=== PATIENT | female | born 1995 | race Caucasian/White ===

== ENCOUNTER 2017-03-06 17:18 | Inpatient (IN) | payer BC, OTHER ==
[~2017-03-06] VITALS: Ht 154.9 cm; Wt 59.0 kg
[~2017-03-06 17:18] MED LIST: Z.0.NO CURRENT MEDS
[2017-03-06 18:11] LABS: AUTOMATED NEUTROPHIL # 5.8 TH/MM3 (1.8-7.7); BASOPHIL % 0.4 % (0.0-2.0); EOSINOPHIL # 0.1 TH/MM3 (0-0.4); EOSINOPHIL % 0.7 % (0.0-4.0); HEMATOCRIT 35.1 % (35.0-46.0); HEMO FLAGS DIFF FINAL; LYMPH % 29.5 % (9.0-44.0); LYMPHOCYTE # 2.8 TH/MM3 (1.0-4.8); MEAN CELL VOLUME 89.5 FL (80.0-100.0); MEAN CORPUSCULAR HEMOGLOBIN 31.5 PG (27.0-34.0); MEAN CORPUSCULAR HGB CONC 35.2 % (32.0-36.0); MONO % 7.8 % (0.0-8.0); NEUT % 61.6 % (16.0-70.0); PLATELET COUNT 178 TH/MM3 (150-450); RED BLOOD COUNT 3.92 MIL/MM3 (4.00-5.30); RED CELL DISTRIBUTION WIDTH 13.9 % (11.6-17.2); WHITE BLOOD COUNT 9.4 TH/MM3 (4.0-11.0)
[2017-03-06] MEDS ORDERED: CITRIC ACID-SODIUM CITRATE LIQ 30 ML UDC PO SCH (18:15)
[2017-03-06] MEDS ORDERED: NS 1000 ML IV PRN (18:15)
[2017-03-06] MEDS ORDERED: LIDOCAINE HCL 1% 50 ML VIAL INFIL PRN (18:15)
[2017-03-06] MEDS ORDERED: NS 500 ML BOLUS IV PRN (18:15)
[2017-03-06] MEDS ORDERED: MINERAL OIL 10 ML VIAL TOPICAL PRN (18:15)
[2017-03-06] MEDS ORDERED: OXYTOCIN 30 UNITS 500ML PREMIX IV ONE (18:15)
[2017-03-06] MEDS ORDERED: LACTATED RINGER'S 1000 ML BOLUS IV PRN (18:15)
[2017-03-06] MEDS ORDERED: LIDOCAINE HCL 1% 50 ML VIAL I-DERMAL PRN (18:15)
[2017-03-06] MEDS ORDERED: ONDANSETRON HCL 4 MG/2 ML VIAL IV PUSH PRN (18:15)
[2017-03-06] MEDS ORDERED: NS 1000 ML OTHER PRN (18:15)
[2017-03-06] MEDS ORDERED: DINOPROSTONE 10 MG INSERT-LEAVE FOR 12 HOURS VAGINAL ONE (18:15)
[2017-03-06 18:21] LABS: BLOOD, URINE NEG (NEG); GLUCOSE,URINE NEG (NEG); KETONE, URINE NEG (NEG); NITRITE,URINE NEG (NEG); PH, URINE 6.5 (5.0-8.5); URINE COLOR YELLOW (YELLW/STRAW)
[2017-03-06 18:34] LABS: BACTERIA, URINE RARE /hpf; COMMENT (UR) CULT NOT INDICATED; CULTURE IF INDICATED CULT NOT INDICATED; RBC, URINE 0-3 /hpf (0-3); SQUAMOUS EPITHELIAL CELL URINE 0-5 /hpf (0-5); WBC, URINE 0-2 /hpf (0-5)
[2017-03-06] MEDS: LACTATED RINGER'S 1000 ML IV SCH (18:34)
[2017-03-06 18:35] LABS: MUCUS URINE MOD /lpf (OCC)
[2017-03-06 18:43] VITALS: RESP 18
[2017-03-06 18:44] VITALS: BP 110/71; PULSE 88
[2017-03-06 19:52] VITALS: BP 115/76; PULSE 104
[2017-03-06 20:00] VITALS: RESP 16; TEMP 98.1
[2017-03-07] VITALS (16 sets, daily range): BP systolic 95–123; BP diastolic 51–82; PULSE 18–97; RESP 16–18; TEMP 98.2–98.5
[2017-03-07] MEDS: LACTATED RINGER'S 1000 ML IV SCH ×3 (02:15→23:00)
[2017-03-07] MEDS ORDERED: OXYTOCIN 30 UNITS/NS 500ML PREMIX IV SCH (07:00)
[2017-03-07] MEDS ORDERED: DINOPROSTONE 10 MG INSERT - REMOVE AT 0600 VAGINAL ONE ×2 (17:00→19:30)
[2017-03-07] MEDS ORDERED: ZOLPIDEM TARTRATE 10 MG TAB PO PRN (23:00)
[2017-03-08] VITALS (38 sets, daily range): BP systolic 95–151; BP diastolic 52–101; PULSE 79–160; RESP 16–22; TEMP 98.2–100.9; O2SAT 97–100
[2017-03-08] MEDS ORDERED: PREN29TA PO (07:25)
--- NOTE | 2017-03-08 09:06 | MB ---
cc: BORIS OSORIO DATE: 03/08/2017 PROGRESS NOTE SUBJECTIVE The patient had a subjectively quiet night and rested well. OBJECTIVE The heart rate tracing is normal. The cervix is now 2, 70, vertex, 0, intact. ASSESSMENT AND PLAN We discussed the various options of either proceeding with induction through [facility] and Pitocin or whether the patient would prefer to go home and come back at a later time for induction or with onset of spontaneous labor. After weighing all the options the patient elected to proceed with induction, active management, membranes were ruptured. Should she have failure to progress or distress she understands the need for delivery. MD CLEMENTE Leiva/SALLIE /8:59 AM /9:03 AM
[2017-03-08] MEDS ORDERED: ePHEDrine/NS 25 MG/5 ML SYR ONE (11:27)
[2017-03-08] MEDS ORDERED: fentaNYL 2MCG-BUPIV 0.125% INJ 100 ML ONE (11:27)
[2017-03-08] MEDS ORDERED: LACTATED RINGER'S 1000 ML INJ 1,000 ML IV SCH (13:04)
[2017-03-08] MEDS ORDERED: DO NOT ADMINISTER ANTICOAGULANTS PRN (14:15)
[2017-03-08] MEDS ORDERED: NO SYSTEM NARCOTICS PRN (14:15)
[2017-03-08] MEDS ORDERED: ePHEDrine/NS 25 MG/5 ML SYR IV PUSH PRN (14:15)
[2017-03-08] MEDS ORDERED: fentaNYL 2MCG-BUPIV 0.125% 100 ML EPIDURAL SCH (14:15)
[2017-03-08] MEDS ORDERED: TERBUTALINE INJ 1 MG/ML AMP ONE (17:24)
[2017-03-08] MEDS ORDERED: LACTATED RINGER'S 1000 ML INJ 1,000 ML IV ONE (17:47)
[2017-03-08] MEDS ORDERED: LIDOCAINE 2%/EPINEPHrine PF 1:200,000 20ML SDV ONE (17:50)
[2017-03-08] MEDS ORDERED: SODIUM BICARBONATE 8.4% INJ 50 ML ONE (17:52)
[2017-03-08] MEDS ORDERED: ceFAZolin INJ 1,000 MG VIAL ONE (17:59)
[2017-03-08] MEDS ORDERED: SODIUM CHLORIDE 0.9% FLUSH 5 ML FLUSH IV PRN (18:00)
[2017-03-08] MEDS ORDERED: SIMETHICONE 80 MG CHEWABLE TAB PO PRN (18:00)
[2017-03-08] MEDS ORDERED: ONDANSETRON HCL 4 MG/2 ML VIAL IVP PRN (18:00)
[2017-03-08] MEDS ORDERED: MEASLES, MUMPS, RUBELLA VACCINE 0.5 ML VIAL SQ ONE (18:00)
[2017-03-08] MEDS ORDERED: KETOROLAC TROMETHAMINE 30 MG/ML (IVP) VIAL IV PUSH PRN (18:00)
[2017-03-08] MEDS ORDERED: OXYTOCIN 30 UNITS-500ML PREMIX 500 ML IV ONE (18:00)
[2017-03-08] MEDS ORDERED: ZOLPIDEM TARTRATE 5 MG TAB PO PRN (18:00)
[2017-03-08] MEDS ORDERED: KETOROLAC TROMETHAMINE 60 MG/2 ML (IM) VIAL IM PRN (18:00)
[2017-03-08] MEDS ORDERED: OXYTOCIN 30 UNITS-500ML PREMIX 500 ML IV PRN (18:15)
[2017-03-08 18:42] LABS: BLOOD GAS O2 HGB SATURATION 66 % (90-100); CORD BLOOD GAS HCO3 21 mmol/L (21-29); CORD BLOOD GAS PCO2 37 mmHG (34-78); CORD BLOOD GAS PH 7.38 (7.14-7.42); CORD BLOOD GAS PO2 29 mmHG (3.0-40.0)
[2017-03-08 18:43] LABS: DRAW SITE CORD BLOOD; STAT NO
[2017-03-08] MEDS ORDERED: ceFAZolin 2 GM PREMIX 50 ML IV SCH (19:00)
[2017-03-08] MEDS ORDERED: CITRIC ACID-SODIUM CITRATE LIQ 30 ML UDC PO SCH (19:30)
[2017-03-08] MEDS ORDERED: OXYTOCIN 30 UNITS-500ML PREMIX 500 ML ONE (20:06)
[2017-03-08] MEDS ORDERED: SODIUM CHLORIDE 0.9% FLUSH 5 ML FLUSH IV SCH (21:00)
[2017-03-08] MEDS ORDERED: diphenhydrAMINE HCL 25 MG CAP PO PRN (22:00)
[2017-03-09] VITALS: BP 122/79; PULSE 85; RESP 18; TEMP 98.1
[2017-03-09] MEDS: ACETAMINOPHEN 1000 MG/100 ML VIAL IV SCH ×2 (02:03→10:22)
[2017-03-09 04:00] VITALS: BP 100/64; PULSE 96; RESP 18; TEMP 98.3
[2017-03-09 06:05] LABS: AUTOMATED NEUTROPHIL # 10.5 TH/MM3 (1.8-7.7); BASOPHIL % 0.1 % (0.0-2.0); HEMATOCRIT 29.1 % (35.0-46.0); HEMO FLAGS DIFF FINAL; LYMPH % 10.9 % (9.0-44.0); LYMPHOCYTE # 1.4 TH/MM3 (1.0-4.8); MEAN CORPUSCULAR HEMOGLOBIN 30.3 PG (27.0-34.0); MEAN CORPUSCULAR HGB CONC 33.7 % (32.0-36.0); MONO % 6.5 % (0.0-8.0); NEUT % 82.5 % (16.0-70.0); PLATELET COUNT 140 TH/MM3 (150-450); RED BLOOD COUNT 3.23 MIL/MM3 (4.00-5.30); WHITE BLOOD COUNT 12.7 TH/MM3 (4.0-11.0)
[2017-03-09 06:25] LABS: BICARBONATE 25.2 MEQ/L (21.0-32.0); POTASSIUM 3.7 MEQ/L (3.5-5.1)
[2017-03-09 08:00] VITALS: BP 97/62; PULSE 92; RESP 16; TEMP 98.2; O2SAT 98
--- NOTE | 2017-03-09 08:22 | MP ---
cc: DEVONBORIS DATE OF SURGERY: 03/08/2017 PREOPERATIVE DIAGNOSIS 1. Term . 2. bradycardia, non-reassuring heart rate tracing. 3. Failure to progress. POSTOPERATIVE DIAGNOSIS 1. Term . 2. bradycardia, non-reassuring heart rate tracing. 3. Failure to progress. 4. Delivered, occiput posterior and tight nuchal cord. ANESTHESIA Epidural. SURGEON Boris Lozano MD RESTAURANT MANAGER Sh[place]ana. ESTIMATED BLOOD LOSS 600 cc. FLUIDS 1.2 liters crystalloid. OBJECTIVE FINDINGS Following the induction of adequate epidural anesthesia the patient was prepped and draped supine on the operating table in the left lateral tilt position, usual sterile fashion, with the bladder being drained via Olvera catheterization. The abdomen was opened through a Pfannenstiel incision using a knife to cut down from the skin to the fascia. The fascia was opened transversely and stripped from the muscles. The rectus muscle was split in the midline and the peritoneum opened sharply without incident. The bladder flap was taken down sharply, retracted with a Argelia blade. The lower uterine segment was incised transversely with a knife and extended with blunt section. The uterus was ruptured of clear fluid. The baby was in the ROP position, slowly rotated and delivered with low pressure boiler operator guidance and fundal pressure. The mouth was suctioned. A tight nuchal cord was reduced. The cord was clamped and cut and the baby passed to the awaiting team, a viable female, Apgars 8 and 9, weight 6 pounds 4 ounces. Cord blood was collected for typing and ABG. The placenta was manually removed. The uterine cavity was wiped clean with laps. The uterus was exteriorized and closed with running suture, first with a running locking stitch of 0 Vicryl, second with a running imbricating stitch of 0 Vicryl. Posterior inspection was normal. The uterus was placed in the peritoneal cavity. Irrigation was performed. No bleeding was evident. The bladder flap was closed with a running stitch of 3-0 Vicryl. All laps and retractors were removed. Counts were correct. The anterior peritoneum was closed with a running stitch of 2-0 Vicryl, the fascia with a running locking stitch of 0 Vicryl corner to midline and tied, subcu with 3-0 Vicryl and skin with running subcuticular 3-0 Monocryl. Dermabond was applied. All counts were correct. The patient was awake and taken to the recovery room in good condition. MD CLEMENTE Leiva/SALLIE /6:56 PM /8:08 AM
[2017-03-09] MEDS: LACTATED RINGER'S 1000 ML IV SCH ×2 (08:25→14:20)
[2017-03-09] MEDS: LACTATED RINGER'S 1000 ML INJ 1,000 ML IV SCH ×2 (08:30→14:20)
--- NOTE | 2017-03-09 08:40 | MH ---
cc: BORIS OSORIO MD DATE OF ADMISSION: 03/06/2017 ADMITTING DIAGNOSIS: Term . HISTORY OF PRESENT ILLNESS The patient is a 21-year-old single white female para 0 with an EDC of 03/06/2017 by dates ultrasound. Her preop course has been benign. PAST MEDICAL HISTORY/PREVIOUS SURGERIES: Tonsillectomy and adenoidectomy age [age]. MEDICATIONS Vitamins. ALLERGIES NONE. TRANSFUSIONS None. SOCIAL HISTORY She is single Artist and student. SOCIAL HISTORY: Alcohol, tobacco and drugs are none. PHYSICAL EXAMINATION: IN GENERAL: This is a well-nourished, well developed white female, vital signs stable. HEAD, EYES, EARS, NOSE, AND THROAT: Exam is normal. CHEST: Chest is clear. HEART: Regular rate. BREASTS: Symmetrical. ABDOMEN: The abdomen is benign. . EFW of 3000 grams. Cervix is closed the soft vertex presentation. PERTINENT POSITIVES: She has history of genital HSV. Valtrex prophylaxis since 02/06/2017 with the negative cultures. She had a positive Chlamydia on 02/12/2017 after treatment x2. Her last gen probe for Chlamydia and gonorrhea was negative on 02/26/1970. PLAN She is now admitted for induction of labor should she have failure to progress or distress with her labor. She is aware the need section. In the office the risks, benefits and complications were explained and accepted. MD CLEMENTE Leiva/ /11:32 AM /8:41 AM
[2017-03-09] MEDS: IBUPROFEN 600 MG TAB PO PRN ×2 (10:22→17:33)
[2017-03-09 12:00] VITALS: BP 108/66; PULSE 111; RESP 16; TEMP 98.4; O2SAT 98
[2017-03-09 20:15] VITALS: BP 101/64; PULSE 98; RESP 18; TEMP 98.1
[2017-03-09] MEDS: oxyCODONE/ACETAMINOPHEN 5 MG/325 MG TAB PO PRN (20:23)
[2017-03-09] MEDS: DOCUSATE SODIUM 50 MG/SENNA 8.6 MG TAB PO PRN (20:23)
[2017-03-10] MEDS: IBUPROFEN 600 MG TAB PO PRN ×4 (01:49→23:52)
[2017-03-10] MEDS: oxyCODONE/ACETAMINOPHEN 5 MG/325 MG TAB PO PRN ×7 (01:49→23:51)
[2017-03-10] MEDS: LACTATED RINGER'S 1000 ML IV SCH ×2 (02:15→10:15)
[2017-03-10] MEDS: LACTATED RINGER'S 1000 ML INJ 1,000 ML IV SCH ×3 (02:57→17:01)
[2017-03-10 03:26] VITALS: BP 91/55; PULSE 76; RESP 18; TEMP 97.9
[2017-03-10 08:00] VITALS: BP 106/68; PULSE 83; RESP 16; TEMP 98.2; O2SAT 98
[2017-03-10] MEDS ORDERED: DIPHTH/TETANUS/ACEL PERTUSSIS (BOOSTER) 0.5 ML VIAL/PFS IM ONE (09:00)
[2017-03-10] MEDS: DOCUSATE SODIUM 50 MG/SENNA 8.6 MG TAB PO PRN (12:16)
[2017-03-10] MEDS ORDERED: OXYC1TAB63 PO (13:24)
[2017-03-10] MEDS ORDERED: IBUP-232 PO (13:24)
--- NOTE | 2017-03-10 13:25 | HHI.DCPOC ---
Discharge Care Plan Your Health Problems Are: delivery Report Symptoms to Your Doctor -Temperature above 100.5 degrees -Redness, of incision or excessive or foul smelling drainage -Unusual pain or calf pain -Increased vaginal bleeding -Painful or difficulty urinating -Feelings of extreme sadness or anxiety after 2 weeks Goals to Promote Your Health * To prevent worsening of your condition and complications * To maintain your health at the optimal level Directions to Meet Your Goals Take your medications as prescribed Follow your dietary instruction Follow activity as directed Ensure plenty of rest for recovery Drink fluids for hydration Keep your appointments as scheduled Take your immunizations and boosters as scheduled If your symptoms worsen call your PCP, if no PCP go to Urgent Care Center or Emergency Room Smoking is Dangerous to Your Health. Avoid second hand smoke Call the 24-hour crisis hotline for domestic abuse at Nnamdi Garduno MD Mar 10, 2017 13:25
[2017-03-10 19:43] VITALS: BP 101/57; PULSE 83; RESP 16; TEMP 97.7
--- NOTE | 2017-03-10 23:22 | HHI.OB ---
Subjective Post Operative Day: 1 Remarks pain controlled, mod lochia, shay po, +void/flatus Objective Vitals/I&O Vital Signs Date Time Temp Pulse Resp B/P (MAP) Pulse Ox O2 Delivery O2 Flow Rate FiO2 03/10/17 08:00 98.2 83 16 106/68 (81) 98 03/10/17 03:26 97.9 18 03/10/17 03:26 76 91/55 (67) Result Diagram: 03/09/1744003/09/17440 Objective Remarks GENERAL: Well-nourished, well-developed patient. CARDIOVASCULAR: Regular rate and rhythm without murmurs, gallops, or rubs. RESPIRATORY: Breath sounds equal bilaterally. No accessory muscle use. ABDOMEN/GI: Abdomen soft, non-tender, bowel sounds present. Incision: Clean, dry and intact. Fundus: Firm, non-tender at umbilicus. GENITOURINARY: Light to moderate bleeding. EXTREMITIES: No cyanosis or edema, non-tender, without signs of DVT. Medications and IVs Current Medications Medications (Trade) Dose Ordered Sig/Elaina Route Start Time Stop Time Status Last Admin Lactated Ringer's 1,000 ml @ 125 mls/hr Q8H IV 03/06/17 18:15 03/07/17 23:00 Lactated Ringer's 1,000 ml @ 3,000 mls/hr BOLUS PRN IV 03/06/17 18:15 Sodium Chloride 500 ml @ 1,000 mls/hr BOLUS PRN IV 03/06/17 18:15 Sodium Chloride 1,000 ml @ 100 mls/hr Q10H PRN IV 03/06/17 18:15 (fentaNYL INJ) 50 mcg Q1H PRN IV PUSH 03/06/17 18:15 03/07/17 23:15 (fentaNYL INJ) 100 mcg Q1H PRN IV PUSH 03/06/17 18:15 03/08/17 09:54 (Muri-Lube Oil) 10 ml UNSCH PRN TOPICAL 03/06/17 18:15 Sodium Chloride 1,000 ml @ 0 mls/hr UNSCH PRN OTHER 03/06/17 18:15 Fentanyl/ Bupivacaine HCl 100 ml @ 0 mls/hr TITRATE EPIDURAL 03/08/17 14:15 Lactated Ringer's 1,000 ml @ 150 mls/hr Q6H40M IV 03/08/17 18:17 Cefazolin Sodium/ Dextrose 50 ml @ 100 mls/hr SENIOR TELECOMMUNICATIONS TECHNICIAN IV 03/08/17 19:00 03/12/17 18:59 (Bicitra Liq) 30 ml SENIOR TELECOMMUNICATIONS TECHNICIAN PO 03/08/17 19:30 03/12/17 19:29 (NS Flush) 2 ml BID IV 03/08/17 21:00 (NS Flush) 2 ml UNSCH PRN IV 03/08/17 18:00 (Mylicon Chew) 80 mg QID PRN PO 03/08/17 18:00 (Motrin) 600 mg Q6H PRN PO 03/08/17 18:00 03/10/17 16:22 (Percocet 5-325 Mg) 1 tab Q4H PRN PO 03/08/17 18:00 03/10/17 19:58 (Percocet 5-325 Mg) 2 tab Q4H PRN PO 03/08/17 18:00 03/10/17 16:22 (Mayra-Colace) 2 tab Q12H PRN PO 03/08/17 18:00 03/10/17 12:16 (Ambien) 5 mg HS PRN PO 03/08/17 18:00 (Zofran Inj) 4 mg Q6H PRN IVP 03/08/17 18:00 (Benadryl) 25 mg Q6H PRN PO 03/08/17 22:00 03/08/17 22:08 Assessment/Plan Problem List: (1) delivery, delivered, current hospitalization ICD Codes: O82 - Encounter for delivery without indication Status: Acute Plan: routine pp care Nnamdi Garduno MD Mar 10, 2017 23:22
[2017-03-11] MEDS: oxyCODONE/ACETAMINOPHEN 5 MG/325 MG TAB PO PRN ×2 (03:35→08:32)
[2017-03-11] MEDS: DOCUSATE SODIUM 50 MG/SENNA 8.6 MG TAB PO PRN (03:38)
[2017-03-11 08:00] VITALS: BP 103/61; PULSE 72; RESP 16; TEMP 98.3
[2017-03-11] MEDS: IBUPROFEN 600 MG TAB PO PRN (08:33)
--- NOTE | 2017-03-11 09:19 | HHI.DS ---
Admission Date Mar 06, 2017 at 17:18 Discharge Date: Mar 11, 2017 Admitting Diagnosis IUP at TERM Diagnosis: Delivery Date: Mar 09, 2017 : Primary Reason: bradycardia Infant: Female Hospital Course pt was admitted for induction of labor, on 03/08 after pt had made it to 7 cm, she had an episode of bradycardia and had an emergency . by pod 3 pt was voiding, passing gas with good pain control and stable for d/c home. Pt Condition on Discharge: Stable Discharge Disposition: Discharge Home Discharge Instructions Diet Instructions: As Tolerated, No Restrictions Additional Diet Instructions: Drink at least 8 - 16 oz bottles of water a day Activities You Can Perform: Shower Only-No Bath Activities to Avoid: Prolonged Standing, Strenuous Activity, Sexual Activity Additional Activity Instruc.: No driving until off pain medications Do not lift anything heavier than your baby in an carrier Nnamdi Garduno MD Mar 11, 2017 09:19
== END 2017-03-11 13:15 | disposition home or self-care (01) | DRG 766 ==
LOC: H2EB 17:18 → H1EA 03-08 20:57
PROVIDERS: ADMIT Obstetrics & Gynecology; ATTEND Obstetrics & Gynecology
PROC: 10D00Z1 Extraction of Products of Conception, Low, Open Approach (ICD-10-PCS; principal; 2017-03-08)
PROC: 10907ZC Drainage of Amniotic Fluid, Therapeutic from Products of Conception, Via Natural or Artificial Opening (ICD-10-PCS; 2017-03-08)
DX: O76 Abnormality in fetal heart rate and rhythm complicating labor and delivery (principal); O32.4XX0 Maternal care for high head at term, not applicable or unspecified; Z3A.40 40 weeks gestation of pregnancy; Z37.0 Single live birth; O69.1XX0 Labor and delivery complicated by cord around neck, with compression, not applicable or unspecified; O62.2 Other uterine inertia
CPT/HCPCS: 59025; 80048; 80307; 81001; 82805; 85025; 86900; 86901; J0131; J0690; J2405; J2590; J3010; J3105; J7120